=== PATIENT | female | born 1990 | race Caucasian/White ===

== ENCOUNTER 2020-07-12 12:43 | Outpatient (CLI) | payer OTHER ==
[2020-07-12] MEDS ORDERED: ACETAMINOPHEN 325 MG TABLET PO ONE (13:09)
[2020-07-12] MEDS ORDERED: ACETAMINOPHEN 325 MG TABLET ONE (13:12)
[2020-07-12 13:32] LABS: APPEARANCE,URINE CLEAR; BILIRUBIN,URINE NEGATIVE (NEGATIVE); COLOR,URINE STRAW; GLUCOSE, URINE NEGATIVE (NEGATIVE); KETONES,URINE TRACE mg/dL (NEGATIVE); LEUKOCYTE ESTERASE,URINE SMALL (NEGATIVE); NITRITE,URINE NEGATIVE (NEGATIVE); PROTEIN,URINE NEGATIVE (NEGATIVE); URINE SPECIFIC GRAVITY 1.006; UROBILINOGEN,URINE NEGATIVE mg/dL (<2.0)
[2020-07-12 13:36] LABS: ABSOLUTE EOSINOPHILS # (AUTO) 0.1 10^3/uL (0.0-0.6); ABSOLUTE LYMPHOCYTES (AUTO) 2.6 10^3/uL (0.5-4.7); ABSOLUTE MONOCYTES (AUTO) 0.9 10^3/uL (0.1-1.4); BASOPHILS % (AUTO) 0.2 % (0-2); EOSINOPHILS % (AUTO) 0.7 % (0-6); HEMATOCRIT 39.7 % (36.0-47.0); HEMOGLOBIN 13.7 g/dL (12.0-15.5); LYMPHOCYTES % (AUTO) 20.4 % (13-45); MEAN CORPUSCULAR HEMOGLOBIN 30.1 pg (27.0-33.4); MEAN CORPUSCULAR HGB CONC 34.4 g/dL (32.0-36.0); MEAN CORPUSCULAR VOLUME 88 fl (80-97); MONOCYTES % (AUTO) 7.1 % (3-13); PLATELET COUNT 190 10^3/uL (150-450); RED BLOOD COUNT 4.53 10^6/uL (3.72-5.28); RED CELL DISTRIBUTION WIDTH 14.7 % (11.5-14.0); SEGMENTED NEUTROPHILS % (AUTO) 71.6 % (42-78); TOTAL CELLS COUNTED % (AUTO) 100 %; WHITE BLOOD COUNT 12.6 10^3/uL (4.0-10.5)
[2020-07-12 13:52] LABS: ALBUMIN 3.4 g/dL (3.5-5.0); ALKALINE PHOSPHATASE 171 U/L (38-126); ANION GAP 12 (5-19); ASPARTATE AMINO TRANSFERASE 21 U/L (14-36); BILIRUBIN,DIRECT 0.2 mg/dL (0.0-0.4); BILIRUBIN,TOTAL 0.7 mg/dL (0.2-1.3); BLOOD UREA NITROGEN 10 mg/dL (7-20); CALCIUM 9.4 mg/dL (8.4-10.2); CARBON DIOXIDE 18 mmol/L (22-30); CHLORIDE 105 mmol/L (98-107); GLUCOSE 77 mg/dL (75-110); POTASSIUM 4.1 mmol/L (3.6-5.0); TOTAL PROTEIN 6.1 g/dL (6.3-8.2); URIC ACID 4.3 mg/dL (2.5-6.2)
[2020-07-12 13:56] LABS: URINE AMPHETAMINES SCREEN NEGATIVE; URINE BARBITURATES SCREEN NEGATIVE; URINE BENZODIAZEPINES SCREEN NEGATIVE; URINE COCAINE SCREEN NEGATIVE; URINE MARIJUANA (THC) SCREEN NEGATIVE; URINE METHADONE SCREEN NEGATIVE; URINE PHENCYCLIDINE SCREEN NEGATIVE
[2020-07-12 14:06] LABS: UR PRO/CREAT RATIO RESULT 0.4 mg/mg (0.0-0.2); URINE CREATININE 28.7 mg/dL (16-327); URINE PROTEIN 10.7 mg/dL (<12)
--- NOTE | 2020-07-12 14:49 | Non Stress Test Report ---
Non Stress Test Datetime Report Generated by CPN: 07/12/2020 14:48 DEMOGRAPHIC EGA NST: 39.0 VITAL SIGNS Temperature - NST: 97.3 Pulse - NST: 70 RESP - NST: 16 NBPSYS NST: 129 NBPDIA NST: 80 MONITORING Monitor Explained: Monitor Explained; Test Explained; Patient Verbalized Understanding Monitor Explained: Monitor Explained; Test Explained; Patient Verbalized Understanding Time on Monitor: 07/12/2020 13:50 Time on Monitor: 07/12/2020 13:08 Time off Monitor: 07/12/2020 14:22 NST Duration: 32 NST INTERVENTIONS NST Interventions: PO Hydration Physician Notified NST: A Seymour CNM BABY A: [id number] BABY A Movement : Present Contraction Frequency : irregular FHR Baseline : 125 Accelerations : 15X15 Decelerations : None Variability : Moderate 6-25bpm NST Review: Meets Criteria for Reactive NST NST Review and Verified By : Hillary Reyes [facility] NST Results: Reactive NST REPORT Report Trigger: Send Report
== END 2020-07-12 14:36 | disposition home or self-care (01) ==
LOC: LC 12:43
PROVIDERS: ATTEND Obstetrics & Gynecology
DX: O14.93 Unspecified pre-eclampsia, third trimester (principal); Z3A.39 39 weeks gestation of pregnancy; Z02.83 Encounter for blood-alcohol and blood-drug test
CPT/HCPCS: 36415; 59025; 80053; 80307; 81005; 82570; 83615; 84156; 84550; 85025

== ENCOUNTER 2020-07-15 18:17 | Inpatient (IN) | payer OTHER ==
[2020-07-15] MEDS ORDERED: RINGERS SOLUTION,LACTATED 1,000 ML IV ONE (18:33)
[2020-07-15] MEDS ORDERED: DINOPROSTONE 10 MG VAGINAL INSERT.SR PV ONE (18:40)
[2020-07-15] MEDS ORDERED: OXYTOCIN/0.9 % SODIUM CHLORIDE 30 UNIT/500 ML RTUINJ IV PRN (18:40)
[2020-07-15 19:27] LABS: ABSOLUTE EOSINOPHILS # (AUTO) 0.1 10^3/uL (0.0-0.6); ABSOLUTE MONOCYTES (AUTO) 0.8 10^3/uL (0.1-1.4); ABSOLUTE NEUT (AUTO) 7.9 10^3/uL (1.7-8.2); BASOPHILS % (AUTO) 0.4 % (0-2); EOSINOPHILS % (AUTO) 1.2 % (0-6); HEMATOCRIT 36.1 % (36.0-47.0); HEMOGLOBIN 12.5 g/dL (12.0-15.5); LYMPHOCYTES % (AUTO) 18.7 % (13-45); MEAN CORPUSCULAR HEMOGLOBIN 30.4 pg (27.0-33.4); MEAN CORPUSCULAR HGB CONC 34.5 g/dL (32.0-36.0); MEAN CORPUSCULAR VOLUME 88 fl (80-97); MONOCYTES % (AUTO) 7.6 % (3-13); PLATELET COUNT 175 10^3/uL (150-450); RED CELL DISTRIBUTION WIDTH 14.8 % (11.5-14.0); SEGMENTED NEUTROPHILS % (AUTO) 72.1 % (42-78); TOTAL CELLS COUNTED % (AUTO) 100 %
[2020-07-15 19:38] LABS: APPEARANCE,URINE CLEAR; BILIRUBIN,URINE NEGATIVE (NEGATIVE); COLOR,URINE STRAW; GLUCOSE, URINE NEGATIVE (NEGATIVE); KETONES,URINE NEGATIVE (NEGATIVE); LEUKOCYTE ESTERASE,URINE MODERATE (NEGATIVE); NITRITE,URINE NEGATIVE (NEGATIVE); PROTEIN,URINE NEGATIVE (NEGATIVE); URINE SPECIFIC GRAVITY 1.008; UROBILINOGEN,URINE NEGATIVE mg/dL (<2.0)
[2020-07-15] MEDS ORDERED: OXYTOCIN 10 UNIT/ML VIAL ONE (19:42)
[2020-07-15] MEDS ORDERED: DINOPROSTONE 10 MG VAGINAL INSERT.SR ONE (19:43)
[2020-07-15] MEDS ORDERED: OXYTOCIN/0.9 % SODIUM CHLORIDE 30 UNIT/500 ML RTUINJ ONE (19:43)
[2020-07-15] MEDS ORDERED: LIDOCAINE 1% INJ-PF (10 MG/ML) 30 ML SDV ONE (19:43)
[2020-07-15] MEDS ORDERED: MISOPROSTOL 0.2 MG TABLET ONE (19:43)
[2020-07-15 19:52] LABS: URINE AMPHETAMINES SCREEN NEGATIVE; URINE BARBITURATES SCREEN NEGATIVE; URINE BENZODIAZEPINES SCREEN NEGATIVE; URINE COCAINE SCREEN NEGATIVE; URINE MARIJUANA (THC) SCREEN NEGATIVE; URINE METHADONE SCREEN NEGATIVE; URINE PHENCYCLIDINE SCREEN NEGATIVE
[2020-07-15] MEDS ORDERED: GLYBURIDE 2.5 MG TABLET PO ONE (20:00)
[2020-07-15] MEDS ORDERED: ZOLPIDEM TARTRATE 5 MG TABLET ONE (23:24)
[2020-07-15] MEDS ORDERED: ZOLPIDEM TARTRATE 5 MG TABLET PO ONE (23:59)
[2020-07-16] MEDS ORDERED: ACETAMINOPHEN 325 MG TABLET PO ONE ×2 (02:53→10:37)
[2020-07-16] MEDS ORDERED: ACETAMINOPHEN 325 MG TABLET ONE ×2 (02:54→10:33)
[2020-07-16] MEDS ORDERED: NALBUPHINE HCL INJ 10 MG/1 ML AMPULE ONE ×2 (09:31→12:33)
--- NOTE | 2020-07-16 10:30 | Admission Physical ---
Datetime Report Generated by CPN: 07/16/2020 10:30 CURRENT ADMISSION Hx Assessment: The History has been Reviewed and is Current Chief Complaint: Scheduled Induction of Labor Indication for Induction: Maternal Diabetes Admit Impression : Term, Intrauterine ; Induction of Labor Admit Plan: Admit to Unit; Initiate Labor Induction Protocol ALLERGIES Medication Allergies: No Medication Allergies: No Known Allergies (07/15/2020) Latex: No Latex Allergies Food Allergies: none Environmental Allergies: none OBSTETRICAL HISTORY EDC: 07/19/2020 00:00 : 2 Para: 0 Term: 0 : 0 SAB: 0 IAB: 1 Ectopic: 0 Livin Cesareans: 0 VBACs: 0 Multiple Births: 0 Gestational Diabetes: Yes Rh Sensitization: No Incompetent Cervix: No QIAN: No Infertility: No ART Treatment: No Uterine Anomaly: No IUGR: No Hx Previous C/S: No Macrosomia: No Hx Loss/Stillborn: No PIH: No Hx : No Placenta Previa/Abruption: No Depression/PP Depression: No PTL/PROM: No Post Hemorrhage: No Current Procedures: Ultrasound; NST Obstetrical History Comments: G1- IAB 2012 G2- Current GDM on glyburide SEE RECORDS Alcohol: No Marijuana : No Cocaine: No Other Illicit Drugs: No Cigarettes: Never Smoker. 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 Surgery: No Heart Disease: No Hosp/Surgery: Yes Autoimmune Disorder: No Anesthetic Complications: No Kidney Disease: No Abnormal Pap Smear: Yes Neuro/Epilepsy: No Psychiatric Disorders: No Other Medical Diseases: No Hepatitis/Liver Disease: No Significant Family History: No Varicosities/Phlebitis: No Trauma/Violence : No Thyroid Dysfunction: No Medical History Comments: Asthma (seasonal and when she is sick), GDM this , HPV in 2015, breast biopsy- benign tumor in 2008 INFECTIOUS HISTORY Gonorrhea: No Genital Herpes: No Chlamydia: No Tuberculosis: No Syphilis: No Hepatitis: No HIV/AIDS Exposure: No Rash or Viral Illness: No HPV: Yes Infectious History Comments: HPV diagnosed in 2015 PHYSICAL EXAM General: Normal HEENT: Deferred Neurologic: Normal Thyroid: Normal Heart: Normal Lungs: Normal Breast: Deferred Back: Normal Abdomen: Normal Genitourinary Exam: Normal Extremities: Normal DTRs: Normal Pelvic Type: Adequate Physical Exam Comments: GDM on po meds FETUS A EGA: 39.4 Monitoring: External US Admit Comment: Admitted to LD for IOL or GDM Cat 1 strip, frequent uc's. q 2, unable to start Pitocin, Dr. Huggins placed Cooks catheter , tolerated procedure Monitor closely, anticipate PLANS FOR LABOR AND DELIVERY Labor and Delivery: None Pain Management: Epidural Feeding Preference: Breast Benefit of Breast Feed Discussed: Yes Circumcision: N/A INFORMED CONSENT Assignment: Diane Huggins MD Signature: with User ID: [email or web address] : with User ID: [email or web address]
[2020-07-16] MEDS ORDERED: NALBUPHINE HCL INJ 10 MG/1 ML AMPULE INJ ONE ×2 (10:58→12:26)
[2020-07-16] MEDS: RINGERS SOLUTION,LACTATED 1,000 ML IV PRN ×2 (14:08→15:21)
[2020-07-16] MEDS ORDERED: EPHEDRINE SULFATE INJ 50 MG/1 ML AMPULE ONE (14:41)
[2020-07-16] MEDS ORDERED: FENTANYL/BUPIVACAINE/NS/PF 300 MCG/150 ML RTUINJ EPI ONE (14:42)
[2020-07-16] MEDS ORDERED: ROPIVACAINE HCL 0.2% INJ/PF (2 MG/ML) 20 ML SDV ONE (14:42)
--- NOTE | 2020-07-16 14:59 | L&D Progress Notes ---
PROGRESS NOTES Datetime Report Generated by CPN: 07/16/2020 14:58 PROGRESS NOTE Comment: Cat 1, irreg uc's, increase in pain, increase in bloody show, asking for epidural, Nubain x 2 with minimal relief LAST VAGINAL EXAM-NURSING Nursing Exam Dilitation: 1.0 Nursing Exam Effacement: thick Nursing Exam Station: high FETUS A : 39.3 SIGNATURE SIGNATURE: ,[id number] Assignment: Diane Huggins MD Signature: with User ID: Dejah : with User ID: Dejah
[2020-07-16] MEDS ORDERED: OXYTOCIN/0.9 % SODIUM CHLORIDE 30 UNIT/500 ML RTUINJ IV PRN (15:51)
--- NOTE | 2020-07-16 16:14 | L&D Progress Notes ---
PROGRESS NOTES Datetime Report Generated by CPN: 07/16/2020 16:14 PROGRESS NOTE Comment: comfortable with epidural, uc's slowed down, Pitocin started, Cat 1 strip LAST VAGINAL EXAM-NURSING Nursing Exam Dilitation: 4.5 Nursing Exam Effacement: 60 Nursing Exam Station: -2 FETUS A : 39.3 SIGNATURE SIGNATURE: [id number];[id number] Assignment: Diane Huggins MD Signature: with User ID: Dejah : with User ID: [email or web address]
[2020-07-17] MEDS ORDERED: DIPHENHYDRAMINE HCL 50 MG/ML VIAL IV ONE (04:05)
[2020-07-17] MEDS ORDERED: DIPHENHYDRAMINE HCL 50 MG/ML VIAL ONE (04:13)
[2020-07-17] MEDS ORDERED: FENTANYL/BUPIVACAINE/NS/PF 300 MCG/150 ML RTUINJ EPI ONE (04:13)
[2020-07-17] MEDS: RINGERS SOLUTION,LACTATED 1,000 ML IV PRN (06:55)
[2020-07-17 08:11] LABS: ABSOLUTE BASOPHILS # (AUTO) 0.1 10^3/uL (0.0-0.2); ABSOLUTE LYMPHOCYTES (AUTO) 1.3 10^3/uL (0.5-4.7); ABSOLUTE MONOCYTES (AUTO) 1.3 10^3/uL (0.1-1.4); ABSOLUTE NEUT (AUTO) 15.3 10^3/uL (1.7-8.2); BASOPHILS % (AUTO) 0.4 % (0-2); EOSINOPHILS % (AUTO) 0.1 % (0-6); HEMATOCRIT 38.9 % (36.0-47.0); HEMOGLOBIN 13.3 g/dL (12.0-15.5); LYMPHOCYTES % (AUTO) 7.2 % (13-45); MEAN CORPUSCULAR HEMOGLOBIN 30.5 pg (27.0-33.4); MEAN CORPUSCULAR HGB CONC 34.3 g/dL (32.0-36.0); MEAN CORPUSCULAR VOLUME 89 fl (80-97); MONOCYTES % (AUTO) 7.3 % (3-13); PLATELET COUNT 172 10^3/uL (150-450); RED BLOOD COUNT 4.38 10^6/uL (3.72-5.28); TOTAL CELLS COUNTED % (AUTO) 100 %
[2020-07-17 08:31] LABS: ALBUMIN 2.9 g/dL (3.5-5.0); ALKALINE PHOSPHATASE 173 U/L (38-126); ANION GAP 8 (5-19); ASPARTATE AMINO TRANSFERASE 24 U/L (14-36); BILIRUBIN,TOTAL 1.2 mg/dL (0.2-1.3); BLOOD UREA NITROGEN 12 mg/dL (7-20); CALCIUM 8.8 mg/dL (8.4-10.2); CARBON DIOXIDE 19 mmol/L (22-30); CHLORIDE 107 mmol/L (98-107); GLUCOSE 100 mg/dL (75-110); POTASSIUM 4.2 mmol/L (3.6-5.0); TOTAL PROTEIN 5.6 g/dL (6.3-8.2); URIC ACID 5.9 mg/dL (2.5-6.2)
[2020-07-17] MEDS ORDERED: AMPICILLIN SOD INJ 2 GM VIAL IV ONE (09:40)
[2020-07-17] MEDS ORDERED: AMPICILLIN SOD INJ 2 GM VIAL ONE (09:43)
[2020-07-17] MEDS ORDERED: METHYLERGONOVINE MALEATE INJ/PF 0.2 MG/1 ML AMPULE ONE (09:51)
[2020-07-17] MEDS ORDERED: CEFAZOLIN 2 GM/D5W RTU 2 GM/50 ML RTUPB IV ONE ×2 (09:56→16:14)
[2020-07-17] MEDS: CEFAZOLIN 2 GM/D5W RTU 2 GM/50 ML RTUPB IV SCH ×3 (10:03→22:17)
[2020-07-17 10:25] LABS: ABSOLUTE BASOPHILS # (AUTO) 0.1 10^3/uL (0.0-0.2); ABSOLUTE LYMPHOCYTES (AUTO) 1.4 10^3/uL (0.5-4.7); ABSOLUTE MONOCYTES (AUTO) 1.2 10^3/uL (0.1-1.4); ABSOLUTE NEUT (AUTO) 15.3 10^3/uL (1.7-8.2); BASOPHILS % (AUTO) 0.3 % (0-2); EOSINOPHILS % (AUTO) 0.1 % (0-6); HEMATOCRIT 34.4 % (36.0-47.0); HEMOGLOBIN 11.4 g/dL (12.0-15.5); LYMPHOCYTES % (AUTO) 7.7 % (13-45); MEAN CORPUSCULAR HEMOGLOBIN 29.9 pg (27.0-33.4); MEAN CORPUSCULAR HGB CONC 33.2 g/dL (32.0-36.0); MEAN CORPUSCULAR VOLUME 90 fl (80-97); MONOCYTES % (AUTO) 6.5 % (3-13); PLATELET COUNT 193 10^3/uL (150-450); RED BLOOD COUNT 3.82 10^6/uL (3.72-5.28); RED CELL DISTRIBUTION WIDTH 14.7 % (11.5-14.0); SEGMENTED NEUTROPHILS % (AUTO) 85.4 % (42-78); TOTAL CELLS COUNTED % (AUTO) 100 %; WHITE BLOOD COUNT 17.9 10^3/uL (4.0-10.5)
[2020-07-17 10:29] LABS: INTERNATIONAL RATION (INR) 1.14; PROTHROMBIN TIME 14.8 SEC (11.4-15.4)
[2020-07-17 10:30] LABS: FIBRINOGEN 537 mg/dL (209-497); PARTIAL THROMBOPLASTIN TIME 32.4 SEC (23.5-35.8)
[2020-07-17] MEDS ORDERED: MISOPROSTOL 0.2 MG TABLET PR PRN (10:41)
[2020-07-17] MEDS ORDERED: OXYTOCIN/0.9 % SODIUM CHLORIDE 30 UNIT/500 ML RTUINJ IV PRN (10:41)
[2020-07-17] MEDS ORDERED: DIBUCAINE 1% OINTMENT 28 GM TP PRN (10:41)
[2020-07-17] MEDS ORDERED: DIPHENHYDRAMINE HCL 25 MG CAPSULE PO PRN (10:41)
[2020-07-17] MEDS ORDERED: ACETAMINOPHEN 650 MG SUPP.RECT PR PRN (10:41)
[2020-07-17] MEDS ORDERED: PROMETHAZINE HCL 25 MG TABLET PO PRN (10:41)
[2020-07-17] MEDS ORDERED: NA PHOS,M-B/NA PHOS,DI-BA (ADULT) 133 ML ENEMA PR PRN (10:41)
[2020-07-17] MEDS ORDERED: PROMETHAZINE HCL INJ 25 MG/1 ML VIAL IV PRN (10:41)
[2020-07-17] MEDS ORDERED: MAGNESIUM HYDROXIDE SUSP 30 ML UDCUP PO PRN (10:41)
[2020-07-17] MEDS ORDERED: PSEUDOEPHEDRINE HCL 30 MG TABLET PO PRN (10:41)
[2020-07-17] MEDS ORDERED: ACETAMINOPHEN WITH CODEINE #3 TABLET PO PRN (10:41)
[2020-07-17] MEDS ORDERED: GLYCERIN/WITCH HAZEL LEAF 1 EACH MED..WIPE TP PRN (10:41)
[2020-07-17] MEDS ORDERED: METHYLERGONOVINE MALEATE INJ/PF 0.2 MG/1 ML AMPULE IM PRN (10:41)
[2020-07-17] MEDS ORDERED: MEASLES,MUMPS&RUBELLA VACC/PF 0.5 ML VIAL SUBCUT PRN (10:41)
[2020-07-17] MEDS ORDERED: DIPH/PERTUSS(ACELL)/TETANUS VAC/PF 0.5 ML SYR (>=10YO) IM PRN (10:41)
[2020-07-17] MEDS ORDERED: BENZOCAINE/MENTHOL AEROSOL SPRAY 56 ML TOP PRN (10:41)
[2020-07-17] MEDS ORDERED: PROMETHAZINE HCL 25 MG SUPP.RECT PR PRN (10:41)
[2020-07-17] MEDS ORDERED: NORMAL SALINE 250 ML IV PRN ×2 (11:15)
[2020-07-17] MEDS ORDERED: ACETAMINOPHEN WITH CODEINE #3 TABLET ONE ×2 (11:21→14:16)
[2020-07-17] MEDS ORDERED: CEFAZOLIN 2 GM/D5W RTU 2 GM/50 ML RTUPB IV SCH (12:00)
--- NOTE | 2020-07-17 12:59 | Delivery Summary ---
Del Sum A-C Datetime Report Generated by CPN: 07/17/2020 12:59 DELIVERY PERSONNEL DELIVERY PERSONNEL: [id number] Delivery Doctor:: Viktoria Jessica CNM Labor and Delivery Nurse:: Nehal Dunlap RNsaddle stitcher Nurse:: CORRY Goyal Tech/MEDIA BUYER: Cheyenne Shaikh CNA II MATERNAL INFORMATION Delivery Anesthesia: Epidural Medications After Delivery: Pitocin 30 Units in 500ml NS/D5W; Methergine 0.2mg IM; Cytotec 1000mcg Per Rectum/Vagina Meds After Delivery Comment: cytotec given by CNM methergine given by Dr Huggins Delivery QBL: 1204 Maternal Complications: Hemorrhage Provider Comments: Walked in room and baby , delivered Oa to José Miguel over intact perineum and 1st degree periurethral, baby placed on mothers abd and cord clamped and cut after 2 minutes, cord blood obtained, placenta not , moderate bleeding, pt feeling lightheaded, BP down, O2, IV fluid bolus, Dr. Muñiz in OR, Dr. Huggins called to return to LD, retained placenta and possible cervix laceration. CBC ordered, Type and Cross [address] Huggins arrived, manually removed placenta, Ampicillin 2 Gms had been given, Ancef 2 Gms added IV, vaginal inspected, cervical laceration dx, methergine 0.2 in lower uterine segment by Dr. Huggins and cytotec 1000mcg via rectum, repair of cervical laceration at 3 o'clock, Dr. Muñiz in room, assisted Dr. Huggins with inspection of cervical laceration. CBC drawn FFFM, no obvious bleeding Baby and mom stable in PP recovery, hardy placed, will monitor closely, may need transfusion LABOR SUMMARY EDC: 07/19/2020 00:00 No. Babies in Womb: 1 Attempted: No Labor Anesthesia: Epidural LABOR INFORMATION Reason for Induction: Maternal Diabetes Onset of Labor: 07/16/2020 19:30 Complete Dilatation: 07/17/2020 07:54 Cervical Ripening Agents: Cervidil; Hardy Balloon Oxytocin: Induction Group B Beta Strep: Negative Antibiotics # of Doses: 0 Antibiotics Time of Last Dose: 07/17/2020 09:48 Name of Antibiotic Given: AMP/ Ancef Steroids Given: None Reason Steroids Not Administered: Not Applicable MEMBRANES Membranes Rupture Method: Spontaneous Rupture of Membranes: 07/16/2020 19:30 Length of Rupture (hr): 13.60 Amniotic Fluid Color: Clear Amniotic Fluid Amount: Small Amniotic Fluid Odor: Normal STAGES OF LABOR Stage 1 hr: 12 Stage 1 min: 24 Stage 2 hr: 1 Stage 2 min: 12 Stage 3 hr: 0 Stage 3 min: 45 Total Time in Labor hr: 14 Total Time in Labor min: 21 VAGINAL DELIVERY Episiotomy: None Laceration #1: Cervical; Periurethral Laceration Extension #1: First Degree Laceration Repair: Yes Sponge Count Correct: Yes Sharps Count Correct: Yes CSECTION DELIVERY Primary Indication: N/A Secondary Indication: N/A CSection Incidence: N/A Labor: N/A Elective: N/A CSection Incision: N/A BABY A INFORMATION Infant Delivery Date/Time: 07/17/2020 09:06 Method of Delivery: Vaginal Nurse Controlled Delivery: No Born in Route : No : N/A Forceps: N/A Vacuum Extraction: N/A Shoulder Dystocia : No PRESENTATION/POSITION BABY A Presentation: Cephalic Cephalic Presentation: Vertex Vertex Position: Left Occipital Anterior Breech Presentation: N/A PLACENTA INFORMATION BABY A Placenta Delivery Time : 07/17/2020 09:51 Placenta Method of Delivery: Manual Removal Placenta Status: Delivered SCORES BABY A Heart Rate 1 min: >100 bpm Resp Effort 1 min: Good Cry Reflex Irritability 1 min: Cough or Sneeze or Pulls Away Muscle Tone 1 min: Active Motion Color 1 min: Blue/Pale Resuscitation Effort 1 min: Tactile Stimulation SCORE 1 MIN: 8 Heart Rate 5 min: >100 bpm Resp Effort 5 min: Good Cry Reflex Irritability 5 min: Cough or Sneeze or Pulls Away Muscle Tone 5 min: Active Motion Color 5 min: Body [place], Extremities Blue Resuscitation Effort 5 min: Tactile Stimulation SCORE 5 MIN: 9 INFANT INFORMATION BABY A Gestational Age at Delivery: 39.5 (Annotations: Data stored by [facility] on behalf of user) Gestational Status: Full Term- 39- 40.6 Weeks Infant Outcome : Liveborn Condition : Stable Infant Sex: Female IDENTIFICATION BABY A Infant Verification Date/Time: 07/17/2020 10:42 ID Band Number: [id number] Mother's Name Verified: Yes Infant RN Verifying Infant: Lamine LeungGermán RN; CadenCheri CORRY Florez WEIGHT/LENGTH BABY A Birthweight (gm): 3310 Weight (lb): 7 Infant Weight (oz): 5 Infant Length (in): 20.00 Length (cm): 50.80 CORD INFORMATION BABY A No. 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
--- NOTE | 2020-07-17 13:00 | Birth Certificate Data ---
Cert Data Datetime Report Generated by CPDerrek: 07/17/2020 12:59 CERTIFICATE DATA Delivery Provider: Viktoria Jessica CNM (07/12/2020 13:33:Nehal Dunlap RN) 47a. Care: Yes (07/12/2020 13:33:Paz Farrell RN) 47b. Date of First Visit: 12/31/2019 00:00 (07/12/2020 13:33:Paz Farrell RN) 47c. Date of Last Visit: 07/08/2020 00:00 (07/12/2020 13:33:Paz Farrell RN) 47d. Number of Visits: 14 (07/12/2020 13:33:Paz Farrell RN) 48a. Number of Prev Live Births: 0 (07/12/2020 13:33:Paz Farrell RN) 48b. Now Livin (07/12/2020 13:33:Milena Burdick RN) 48c. Live Births Now : 0 (07/12/2020 13:33:QS system process) 48e. Losses: 0 (07/12/2020 13:33:Paz Farrell RN) RISK FACTORS IN THIS 49a. Diabetes: Yes (07/12/2020 13:33:Paz Farrell RN) Type of Diabetes: Gestational Diabetes (07/12/2020 13:33:Paz Farrell RN) 49b. Hypertension: No (07/12/2020 13:33:Paz Farrell RN) 49c. Previous Births: 0 (07/12/2020 13:33:Milena Burdick RN) 49d. Stillborns: No (07/12/2020 13:33:Paz Farrell RN) 49d. IUGR: No (07/12/2020 13:33:Paz Farrell RN) 49e. Infertility Treatment: No (07/12/2020 13:33:Paz Farrell RN) 49f. Previous Cesareans: 0 (07/12/2020 13:33:Paz Farrell RN) Mother's Height 50b. Height Inches: 63 (07/15/2020 19:04:QS system process) Mother's Weight 51a. Pre- Weight (lbs): 155 (07/12/2020 13:33:Paz Farrell RN) 51b. Weight at Delivery (lbs): 198 (07/15/2020 19:04:QS system process) 52. Dt Last Normal Menses Began: 10/13/2019 00:00 (07/12/2020 13:33:Paz Farrell RN) Infections Present/Treated 53a. Gonorrhea: No (07/12/2020 13:33:Paz Farrell RN) Results this Hospital Visit : Negative (07/12/2020 13:33:Milena Burdick RN) 53b. Syphilis: No (07/12/2020 13:33:Paz Farrell RN) Results this Hospital Visit: NONREACTIVE (07/15/2020 19:08:QS system process) 53c. Chlamydia: No (07/12/2020 13:33:Paz Farrell RN) Results this Hospital Visit: Negative (07/12/2020 13:33:Milena Burdick RN) 53d. Hepatitis B: No (07/12/2020 13:33:Paz Farrell RN) Results this Hospital Visit: Negative (07/12/2020 13:33:Milena Burdick RN) 53e. Hepatitis C: Negative (07/12/2020 13:33:Nehal Dunlap RN) 53h. Mother Tested for HBsAG: Yes (07/12/2020 13:33:Paz Farrell RN) 53i. Date Tested: 12/31/2019 00:00 (07/12/2020 13:33:Paz Farrell RN) 53j. Test Result: Negative (07/12/2020 13:33:Milena Burdick RN) Obstetric Procedures 54a, b, c. Obstetric Procedures: Ultrasound; NST (07/12/2020 13:33:Paz Farrell RN) Cigarette Smoking Cigarette Smoking: Never Smoker. [id number] (07/12/2020 13:33:Paz Farrell RN) 55a. 3 Months Before Preg - Ci (07/12/2020 13:33:Paz Farrell RN) 55a. Packs: 0 (07/12/2020 13:33:Paz Farrell RN) 55b. 1st Trimester of Preg- Ci (07/12/2020 13:33:Paz Farrell RN) 55b. Packs: 0 (07/12/2020 13:33:Paz Farrell RN) 55c. 2nd Trimester of Preg- Ci (07/12/2020 13:33:Paz Farrell RN) 55c. Packs: 0 (07/12/2020 13:33:Paz Farrell RN) 55d. 3rd Trimester of Preg- Ci (07/12/2020 13:33:Paz Farrell RN) 55d. Packs: 0 (07/12/2020 13:33:Paz Farrell RN) Onset of Labor 56a. PROM >12 Hrs: 13.60 (07/16/2020 19:30:QS system process) 56b. Precipitous Labor <3 Hrs: 14 (07/12/2020 13:33:QS system process) 56c. Prolonged Labor > 20 Hrs: 14 (07/12/2020 13:33:QS system process) 57a. Induction of Labor: Induction (07/12/2020 13:33:Ekaterina Ashton RN) 57a. Induction of Labor: Cervidil; Vu Balloon (07/15/2020 19:54:Ekaterina Ashton RN) 57c. Non-Vertex Presentation A: Vertex (07/12/2020 13:33:Nehal Dunlap RN) 57d. Steroids - Lung Mat: None (07/12/2020 13:33:Ekaterina Ashton RN) 57d. Steroids - Lung Mat: Not Applicable (07/12/2020 13:33:Ekaterina Ashton RN) 57e. Antibiotics During Labor: 07/17/2020 09:48 (07/12/2020 13:33:Nehal Dunlap RN) 57f. Mat [place] or Temp >100.4: 99.4 (07/12/2020 13:33:Nehal Dunlap RN) 57g. Moderate/Heavy Meconium: Clear (07/16/2020 19:30:Ekaterina Ashton RN) 57h. Intolerance of Labor: N/A (07/12/2020 13:33:Nehal Dunlap RN) : N/A (07/12/2020 13:33:Nehal Dunlap RN) 57i. Epidural/Spinal Anesthesia: Epidural (07/12/2020 13:33:Ekaterina Ashton RN) Method of Delivery 58a. Forceps - Unsuccessful A: N/A (07/12/2020 13:33:Nehal Dunlap RN) 58b. Vacuum - Unsuccessful A: N/A (07/12/2020 13:33:Nehal Dunlap RN) 58c. Presentation at 58c. Presentation at - A : Vertex (07/12/2020 13:33:Nehal Dunlap RN) 58c. Presentation at - A : N/A (07/12/2020 13:33:Nehal Dunlap RN) 58c. Presentation at - A : Cephalic (07/16/2020 15:34:Clarissa Mendoza RN) Final Route and Method of Del 58d. Baby A Route/Delivery: Vaginal (07/17/2020 09:06:Nehal Dunlap RN) 58e. Trial of Labor Attempted: No (07/12/2020 13:33:Ekaterina Ashton RN) 58e. Trial of Labor Attempted A: N/A (07/12/2020 13:33:Ekaterina Ashton RN) 58e. Trial of Labor Attempted B: N/A (07/12/2020 13:33:Ekaterina Ashton RN) Maternal Morbidity 59b. 3rd or 4th Degree Lacs: Cervical; Periurethral (07/12/2020 13:33:Nehal Dunlap RN) Birthweight Baby A: 3310 (07/12/2020 13:33:Nehal Dunlap RN) 60a. Pounds : 7 (07/12/2020 13:33:QS system process) 60b. Ounces: 5 (07/12/2020 13:33:QS system process) 61. GA at Delivery Baby A: 39.5 (Annotations: Data stored by [facility] on behalf of user) (07/12/2020 13:33:Clarissa Mendoza RN) : Full Term- 39- 40.6 Weeks (07/12/2020 13:33:QS system process) 62a. 5 Minute Baby A: 9 (07/12/2020 13:33:QS system process)
[2020-07-17 15:51] LABS: ABSOLUTE BASOPHILS # (AUTO) 0.1 10^3/uL (0.0-0.2); ABSOLUTE EOSINOPHILS # (AUTO) 0.1 10^3/uL (0.0-0.6); ABSOLUTE LYMPHOCYTES (AUTO) 1.7 10^3/uL (0.5-4.7); ABSOLUTE MONOCYTES (AUTO) 1.3 10^3/uL (0.1-1.4); ABSOLUTE NEUT (AUTO) 20.3 10^3/uL (1.7-8.2); BASOPHILS % (AUTO) 0.3 % (0-2); EOSINOPHILS % (AUTO) 0.2 % (0-6); HEMATOCRIT 29.9 % (36.0-47.0); HEMOGLOBIN 10.3 g/dL (12.0-15.5); LYMPHOCYTES % (AUTO) 7.4 % (13-45); MEAN CORPUSCULAR HEMOGLOBIN 30.6 pg (27.0-33.4); MEAN CORPUSCULAR HGB CONC 34.4 g/dL (32.0-36.0); MEAN CORPUSCULAR VOLUME 89 fl (80-97); MONOCYTES % (AUTO) 5.7 % (3-13); PLATELET COUNT 173 10^3/uL (150-450); RED BLOOD COUNT 3.36 10^6/uL (3.72-5.28); SEGMENTED NEUTROPHILS % (AUTO) 86.4 % (42-78); TOTAL CELLS COUNTED % (AUTO) 100 %; WHITE BLOOD COUNT 23.5 10^3/uL (4.0-10.5)
[2020-07-17] MEDS ORDERED: DIPHENHYDRAMINE HCL 25 MG CAPSULE ONE (16:29)
[2020-07-17] MEDS ORDERED: ACETAMINOPHEN 325 MG TABLET ONE (16:29)
[2020-07-17] MEDS ORDERED: DIPHENHYDRAMINE HCL 50 MG CAPSULE PO ONE (18:00)
[2020-07-17] MEDS ORDERED: ACETAMINOPHEN 325 MG TABLET PO ONE (18:00)
[2020-07-17] MEDS: DOCUSATE SODIUM 100 MG CAPSULE PO SCH (20:13)
[2020-07-17] MEDS ORDERED: FERROUS SULFATE 325 MG TABLET PO ONE (20:15)
[2020-07-17] MEDS ORDERED: DOCUSATE SODIUM 100 MG CAPSULE ONE (20:15)
[2020-07-17] MEDS: FERROUS SULFATE 325 MG TABLET PO SCH (20:20)
[2020-07-17] MEDS: ACETAMINOPHEN WITH CODEINE #3 TABLET PO PRN (22:16)
[2020-07-17] MEDS: FAMOTIDINE 20 MG TABLET PO SCH (22:18)
[2020-07-18] MEDS: CEFAZOLIN 2 GM/D5W RTU 2 GM/50 ML RTUPB IV SCH ×4 (04:51→22:13)
[2020-07-18 06:48] LABS: HEMATOCRIT 28.9 % (36.0-47.0); HEMOGLOBIN 10.1 g/dL (12.0-15.5); MEAN CORPUSCULAR HEMOGLOBIN 30.4 pg (27.0-33.4); MEAN CORPUSCULAR HGB CONC 34.8 g/dL (32.0-36.0); MEAN CORPUSCULAR VOLUME 87 fl (80-97); PLATELET COUNT 157 10^3/uL (150-450); RED BLOOD COUNT 3.31 10^6/uL (3.72-5.28); RED CELL DISTRIBUTION WIDTH 15.1 % (11.5-14.0); WHITE BLOOD COUNT 19.3 10^3/uL (4.0-10.5)
[2020-07-18] MEDS: PRENATAL VITAMIN W DHA CAPSULE PO SCH (09:38)
[2020-07-18] MEDS: FAMOTIDINE 20 MG TABLET PO SCH ×2 (09:38→22:14)
[2020-07-18] MEDS: FERROUS SULFATE 325 MG TABLET PO SCH ×2 (09:38→17:13)
[2020-07-18] MEDS: SENNOSIDES/DOCUSATE 8.6-50 MG 1 EACH TABLET PO SCH (09:38)
[2020-07-18] MEDS: DOCUSATE SODIUM 100 MG CAPSULE PO SCH ×2 (09:38→17:13)
[2020-07-18] MEDS: ACETAMINOPHEN WITH CODEINE #3 TABLET PO PRN (18:22)
[2020-07-19] MEDS ORDERED: CEFAZOLIN 2 GM/D5W RTU 2 GM/50 ML RTUPB IV ONE (03:43)
[2020-07-19] MEDS: CEFAZOLIN 2 GM/D5W RTU 2 GM/50 ML RTUPB IV SCH ×2 (03:56→10:14)
[2020-07-19] MEDS: FERROUS SULFATE 325 MG TABLET PO SCH (09:26)
[2020-07-19] MEDS: DOCUSATE SODIUM 100 MG CAPSULE PO SCH (09:26)
[2020-07-19] MEDS: FAMOTIDINE 20 MG TABLET PO SCH (09:26)
[2020-07-19] MEDS: PRENATAL VITAMIN W DHA CAPSULE PO SCH (09:26)
[2020-07-19] MEDS: SENNOSIDES/DOCUSATE 8.6-50 MG 1 EACH TABLET PO SCH (09:26)
--- NOTE | 2020-07-19 11:48 | PDOC DISCHARGE SUMMARY ---
Impression - Admit/DC Date/PCP Admission Date/Primary Care Provider: 07/15/20 18:17 Discharge Date: 07/19/20 - Discharge Diagnosis (1) Cervical laceration Is this a current diagnosis for this admission?: Yes (2) Gestational diabetes mellitus (GDM) controlled on oral hypoglycemic drug Is this a current diagnosis for this admission?: Yes (3) Laceration of periurethral tissue with delivery Is this a current diagnosis for this admission?: Yes (4) hemorrhage Is this a current diagnosis for this admission?: Yes (5) Vaginal delivery Is this a current diagnosis for this admission?: Yes - Additional Information Discharge Diet: Regular Discharge Activity: Activity As Tolerated, Pelvic Rest Referrals: [facility] [Provider Group] (Please call and schedule a 4 week f/u at [facility]. ) Prescriptions: Ibuprofen [Motrin 800 mg Tablet] 800 mg PO Q8H PRN #60 tab PRN Reason: Home Medications: 95/Iron Fum/Folic/Dha [ + Dha Combo Pack] 1 each PO DAILY 07/12/20 Ibuprofen [Motrin 800 mg Tablet] 800 mg PO Q8H PRN #60 tab 07/19/20 Hospital Course 59. Maternal Morbidity (serious complications experinced by the mother associated with labor and delivery: Maternal transfusion Results Laboratory Results: WBC 19.3 10^3/uL (4.0-10.5) H 07/18/20 06:28 RBC 3.31 10^6/uL (3.72-5.28) L 07/18/20 06:28 Hgb 10.1 g/dL (12.0-15.5) L 07/18/20 06:28 Hct 28.9 % (36.0-47.0) L 07/18/20 06:28 MCV 87 fl (80-97) 07/18/20 06:28 MCH 30.4 pg (27.0-33.4) 07/18/20 06:28 MCHC 34.8 g/dL (32.0-36.0) 07/18/20 06:28 RDW 15.1 % (11.5-14.0) H 07/18/20 06:28 Plt Count 157 10^3/uL (150-450) 07/18/20 06:28 Lymph % (Auto) 7.4 % (13-45) L 07/17/20 15:29 [place] % (Auto) 5.7 % (3-13) 07/17/20 15:29 Eos % (Auto) 0.2 % (0-6) 07/17/20 15:29 Baso % (Auto) 0.3 % (0-2) 07/17/20 15:29 Absolute Neuts (auto) 20.3 10^3/uL (1.7-8.2) H 07/17/20 15:29 Absolute Lymphs (auto) 1.7 10^3/uL (0.5-4.7) 07/17/20 15:29 Absolute Monos (auto) 1.3 10^3/uL (0.1-1.4) 07/17/20 15: Absolute Eos (auto) 0.1 10^3/uL (0.0-0.6) 07/17/20 15:29 Absolute Basos (auto) 0.1 10^3/uL (0.0-0.2) 07/17/20 15:29 Seg Neutrophils % 86.4 % (42-78) H 07/17/20 15:29 PT 14.8 SEC (11.4-15.4) 07/17/20 10:12 INR 1.14 07/17/20 10:12 APTT 32.4 SEC (23.5-35.8) 07/17/20 10:12 Fibrinogen 537 mg/dL (209-497) H 07/17/20 10:12 Sodium 134.0 mmol/L (137-145) L 07/17/20 07:55 Potassium 4.2 mmol/L (3.6-5.0) 07/17/20 07:55 Chloride 107 mmol/L (98-107) 07/17/20 07:55 Carbon Dioxide 19 mmol/L (22-30) L 07/17/20 07:55 Anion Gap 8 (5-19) 07/17/20 07:55 BUN 12 mg/dL (7-20) 07/17/20 07:55 Creatinine 0.83 mg/dL (0.52-1.25) 07/17/20 07:55 Est GFR ( Amer) > 60 (>60) 07/17/20 07:55 Est GFR (MDRD) Non-Af > 60 (>60) 07/17/20 07:55 Glucose 100 mg/dL (75-110) 07/17/20 07:55 POC Glucose 108 mg/dL (70-110) 07/16/20 10:38 Uric Acid 5.9 mg/dL (2.5-6.2) 07/17/20 07:55 Calcium 8.8 mg/dL (8.4-10.2) 07/17/20 07:55 Total Bilirubin 1.2 mg/dL (0.2-1.3) 07/17/20 07:55 Direct Bilirubin 0.0 mg/dL (0.0-0.4) 07/17/20 07:55 Neonat Total Bilirubin Not Reportable 07/17/20 07:55 Neonat Direct Bilirubin Not Reportable 07/17/20 07:55 Neonat Indirect Bili Not Reportable 07/17/20 07:55 AST 24 U/L (14-36) 07/17/20 07:55 ALT 15 U/L (<35) 07/17/20 07:55 Alkaline Phosphatase 173 U/L (38-126) H 07/17/20 07:55 Lactate Dehydrogenase 193 U/L (120-246) 07/17/20 07:55 Total Protein 5.6 g/dL (6.3-8.2) L 07/17/20 07:55 Albumin 2.9 g/dL (3.5-5.0) L 07/17/20 07:55 Urine Color STRAW 07/15/20 18:47 Urine Appearance CLEAR 07/15/20 18:47 Urine pH 6.0 (5.0-9.0) 07/15/20 18:47 Ur Specific [place] 1.008 07/15/20 18:47 Urine Protein NEGATIVE mg/dL (NEGATIVE) 07/15/20 18:47 Urine Glucose (UA) NEGATIVE mg/dL (NEGATIVE) 07/15/20 18:47 Urine Ketones NEGATIVE mg/dL (NEGATIVE) 07/15/20 18:47 Urine Blood NEGATIVE (NEGATIVE) 07/15/20 18:47 Urine Nitrite NEGATIVE (NEGATIVE) 07/15/20 18:47 Urine Bilirubin NEGATIVE (NEGATIVE) 07/15/20 18:47 Urine Urobilinogen NEGATIVE mg/dL (<2.0) 07/15/20 18:47 Ur Leukocyte Esterase MODERATE (NEGATIVE) H 07/15/20 18:47 Urine Ascorbic Acid 40 (NEGATIVE) H 07/15/20 18:47 Urine Opiates Screen NEGATIVE 07/15/20 18:47 Urine Methadone Screen NEGATIVE 07/15/20 18:47 Ur Barbiturates Screen NEGATIVE 07/15/20 18:47 Ur Phencyclidine Scrn NEGATIVE 07/15/20 18:47 Ur Amphetamines Screen NEGATIVE 07/15/20 18:47 U Benzodiazepines Scrn NEGATIVE 07/15/20 18:47 Urine Cocaine Screen NEGATIVE 07/15/20 18:47 U Marijuana (THC) Screen NEGATIVE 07/15/20 18:47 RPR NONREACTIVE (NONREACTIVE) 07/15/20 19:08 Blood Type O POSITIVE 07/15/20 19:08 Blood Type Confirm O POSITIVE 07/17/20 10:12 Antibody Screen NEGATIVE 07/15/20 19:08 Crossmatch See Detail 07/15/20 19:08 Plan Plan of Treatment: follow up in 4 weeks at [facility] for post check
[2020-07-19 11:50] VITALS: BP 125/76
== END 2020-07-19 13:10 | disposition home or self-care (01) | DRG 806 ==
LOC: LR 18:17 → 2S 07-17 20:29
PROVIDERS: ADMIT Obstetrics & Gynecology Gynecology; ATTEND Obstetrics & Gynecology Gynecology
PROC: 10E0XZZ Delivery of Products of Conception, External Approach (ICD-10-PCS; principal; 2020-07-17)
PROC: 0UQMXZZ Repair Vulva, External Approach (ICD-10-PCS; 2020-07-17)
PROC: 3E033VJ Introduction of Other Hormone into Peripheral Vein, Percutaneous Approach (ICD-10-PCS; 2020-07-17)
DX: O24.425 Gestational diabetes mellitus in childbirth, controlled by oral hypoglycemic drugs (principal); O72.1 Other immediate postpartum hemorrhage; Z37.0 Single live birth; O71.82 Other specified trauma to perineum and vulva; O69.81X0 Labor and delivery complicated by cord around neck, without compression, not applicable or unspecified; Z3A.39 39 weeks gestation of pregnancy
CPT/HCPCS: 1967; 36415; 36430; 59025; 80053; 80307; 81005; 82962; 83615; 84550; 85025; 85027; 85384; 85610; 85730; 86592; 86850; 86900; 86901; 86920; 88307; 94760; J0290; J0690; J1200; J2210; J2300; J2590; J2795; J3010; J3490; P9016